=== PATIENT | female | born 1995 | race Hispanic/Latino ===

== ENCOUNTER 2022-09-08 03:02 | Emergency (ER) | payer BC ==
[2022-09-08] MEDS ORDERED: Proparacaine 0.5% Opth 15 ML BOT ONE (04:18)
[2022-09-08] MEDS ORDERED: Fluorescein Opthalmic Strip ONE (04:18)
== END 2022-09-08 04:47 | disposition home or self-care (01) ==
LOC: ERS 03:02
DX: S05.01XA Injury of conjunctiva and corneal abrasion without foreign body, right eye, initial encounter (principal)
CPT/HCPCS: 99283